=== PATIENT | female | born 1975 | race Caucasian/White ===

== ENCOUNTER 2023-06-24 15:38 | Emergency (ER) | payer MEDICAID ==
[~2023-06-24] VITALS: Ht 177.8 cm; Wt 67.7 kg
[~2023-06-24 15:38] MED LIST: CLIN300C65 PO; NO HOME MEDS
[2023-06-24 15:39] VITALS: BP 144/92; PULSE 111; RESP 18; TEMP 99.3; O2SAT 100
== END 2023-06-24 18:38 | disposition left against medical advice (07) ==
LOC: ER 15:39
DX: F10.129 Alcohol abuse with intoxication, unspecified (principal); Z53.21 Procedure and treatment not carried out due to patient leaving prior to being seen by health care provider
CPT/HCPCS: 99281